=== PATIENT | female | born 1950 | race Caucasian/White ===

== ENCOUNTER 2017-09-29 17:23 | Emergency (ER) | payer OTHER, MEDICARE ==
[~2017-09-29] VITALS: Ht 161.3 cm; Wt 65.8 kg
[~2017-09-29 17:23] MED LIST: CITRACAL + D C1 EACH PO; CLARITIN10 M3 PO; COENZYME Q1010 M1 PO; FLONASE16 G1 BOTH NARES; LEXAPRO10 MG PO; LO-DOSE ASPIRIN81 M1 PO; OMEGA-31000 M1 PO; PRILOSEC40 MG PO; TYLENOL REGULA325 MG PO; WELLBUTRIN XL300 MG PO; ZOCOR20 MG PO
[2017-09-29 22:09] LABS: BASOPHIL (%) 0.5 % (0-1); EOSINOPHIL (%) 0.9 % (0-5); EOSINOPHIL COUNT 0.1 K/uL (0-0.3); HEMATOCRIT 36.4 % (36.0-46.0); HEMOGLOBIN 12.2 G/DL (11.9-15.5); IMMATURE GRANULOCYTE (%) 0.3 % (0.0-0.7); LYMPHOCYTE COUNT 1.4 K/uL (1.0-2.8); MCH 29.8 PG (29.0-34.0); MCHC 33.5 G/DL (30.0-36.0); MCV 88.8 FL (83-99); MONOCYTE (%) 6.6 % (3-12); MONOCYTE COUNT 0.5 K/uL (0-0.8); NEUTROPHIL (%) 73.7 % (45-76); NEUTROPHIL COUNT 5.7 K/uL (1.8-6.4); PLATELET COUNT 179 K/uL (156-360); RBC DIS.WIDTH-CV 13.2 % (11.8-14.6); RBC DIS.WIDTH-SD 43.3 % (39-53); WHITE BLOOD COUNT 7.7 K/uL (4.1-10.2)
[2017-09-29 22:19] LABS: ALBUMIN 4.2 g/dL (3.2-4.8); CHLORIDE 108 mEq/L (99-109); POTASSIUM 3.5 mEq/L (3.7-5.4); SODIUM 143 mEq/L (136-147)
[2017-09-29 22:19] LABS: APPEARANCE CLEAR ((CLEAR)); BILIRUBIN NEGATIVE; BLOOD NEGATIVE; COLOR COLORLESS ((YELLOW)); GLUCOSE (STRIP) NEGATIVE; KETONES NEGATIVE; LEUKOCYTES NEGATIVE; NITRITE NEGATIVE; PROTEIN (STRIP) NEGATIVE; SPECIFIC GRAVITY 1.003 (1.000-1.030); UCUL ADDED? NO; UROBILINOGEN 0.2 MG/DL (0.2-1.0)
[2017-09-29 22:20] LABS: MAGNESIUM 2.2 mg/dL (1.3-2.7)
[2017-09-29 22:21] LABS: GLUCOSE 139 mg/dL (70-99)
[2017-09-29 22:23] LABS: TOTAL BILIRUBIN 0.3 mg/dL (0.0-1.0)
[2017-09-29 22:25] LABS: ALKALINE PHOSPHATASE 74 IU/L (3-129); CREATININE 0.9 mg/dL (0.6-1.3); GFR ESTIMATE (CALCULATED) > 59 mL/min/
[2017-09-29 22:26] LABS: UREA NITROGEN (BUN) 12 mg/dL (9-23)
[2017-09-29 22:27] LABS: AST (GOT) 20 IU/L (2-34)
[2017-09-29 22:28] LABS: ALT (GPT) 19 IU/L (3-49)
[2017-09-29 23:28] VITALS: BP 122/69
== END 2017-09-29 23:32 | disposition home or self-care (01) ==
LOC: EME 17:23
PROVIDERS: Emergency Medicine
DX: R20.2 Paresthesia of skin (principal); E78.5 Hyperlipidemia, unspecified; F32.9 Major depressive disorder, single episode, unspecified; F41.9 Anxiety disorder, unspecified; K21.9 Gastro-esophageal reflux disease without esophagitis; Z79.82 Long term (current) use of aspirin
CPT/HCPCS: 70450; 71045; 80053; 81003; 83735; 85025; 93005; 99281; 99285